=== PATIENT | male | born 1995 | race Caucasian/White ===

== ENCOUNTER 2022-11-03 20:09 | Emergency (ER) | payer OTHER ==
[2022-11-03] MEDS ORDERED: Tetracaine HCl/PF 0.5% 4 ML Bottle EYEBOTH ONE (21:10)
[2022-11-03] MEDS ORDERED: Ibuprofen 600 MG Tab PO ONE (21:53)
[2022-11-03] MEDS ORDERED: Gentamicin 0.3% Ophth Soln 5 ML Bottle EYERT SCH (22:00)
== END 2022-11-03 22:11 | disposition home or self-care (01) ==
LOC: MW.ED 20:09
DX: S05.01XA Injury of conjunctiva and corneal abrasion without foreign body, right eye, initial encounter (principal)
CPT/HCPCS: 99283; A9270; 99282; J3490

== ENCOUNTER 2023-02-18 02:17 | Emergency (ER) | payer OTHER, BC ==
[2023-02-18] MEDS ORDERED: Ibuprofen 800 MG Tab PO ONE (02:47)
== END 2023-02-18 04:05 | disposition home or self-care (01) ==
LOC: MW.ED 02:17
DX: S49.92XA Unspecified injury of left shoulder and upper arm, initial encounter (principal); W01.0XXA Fall on same level from slipping, tripping and stumbling without subsequent striking against object, initial encounter
CPT/HCPCS: 73000; 73030; 99283; A9270